=== PATIENT | female | born 1985 | race African-American/Black ===

== ENCOUNTER 2016-12-27 16:55 | Emergency (ER) | payer MEDICAID ==
[~2016-12-27] VITALS: Ht 167.6 cm; Wt 85.0 kg
[2016-12-27] MEDS ORDERED: ALBU2SYR PO (17:00)
[2016-12-27] MEDS ORDERED: ACETAMINOPHEN 325MG TABLET PO ONE (17:30)
[2016-12-27 20:22] VITALS: BP 130/85
== END 2016-12-27 20:25 | disposition home or self-care (01) ==
LOC: ER 16:55
DX: S80.02XA Contusion of left knee, initial encounter (principal); I10 Essential (primary) hypertension; J45.909 Unspecified asthma, uncomplicated; M32.9 Systemic lupus erythematosus, unspecified; W22.8XXA Striking against or struck by other objects, initial encounter; Y93.89 Activity, other specified; Y99.8 Other external cause status; Y92.481 Parking lot as the place of occurrence of the external cause
CPT/HCPCS: 73562; 81025; 99284

== ENCOUNTER 2017-07-09 04:03 | Emergency (ER) | payer MEDICAID, MEDICARE ==
[~2017-07-09] VITALS: Ht 175.3 cm; Wt 102.0 kg
[~2017-07-09 04:03] MED LIST: ALBU2SYR PO
[2017-07-09 04:15] VITALS: BP 175/121
== END 2017-07-09 05:09 | disposition home or self-care (01) ==
LOC: ER 04:03
DX: Z48.02 Encounter for removal of sutures (principal); I10 Essential (primary) hypertension; J45.909 Unspecified asthma, uncomplicated
CPT/HCPCS: 99281; Z7610

== ENCOUNTER 2018-03-02 09:21 | Emergency (ER) | payer MEDICAID, MEDICARE ==
[~2018-03-02] VITALS: Ht 175.3 cm; Wt 84.3 kg
[~2018-03-02 09:21] MED LIST changes: -ALBU2SYR PO; +ALBU2SYR3 PO
[2018-03-02] MEDS ORDERED: FAMOTIDINE 20MG/2ML VIAL IV ONE (10:00)
[2018-03-02] MEDS ORDERED: DIPHENHYDRAMINE 50MG/ML VIAL IV ONE (10:00)
[2018-03-02] MEDS ORDERED: METHYLPREDNISOLONE SOD SUCC 125 MG/2 ML VIAL IV ONE (10:00)
[2018-03-02 12:38] VITALS: BP 180/95
== END 2018-03-02 12:48 | disposition home or self-care (01) ==
LOC: ER 09:49
DX: T78.40XA Allergy, unspecified, initial encounter (principal); X58.XXXA Exposure to other specified factors, initial encounter; J45.909 Unspecified asthma, uncomplicated; I10 Essential (primary) hypertension; Z88.6 Allergy status to analgesic agent; Z91.018 Allergy to other foods
CPT/HCPCS: 96374; 96375; 99284; J1200; J2930; J3490

== ENCOUNTER 2023-05-12 00:13 | Emergency (ER) | payer MEDICAID ==
[~2023-05-12] VITALS: Ht 175.3 cm; Wt 103.0 kg
[2023-05-12 00:53] VITALS: BP 187/95; PULSE 82; RESP 14; TEMP 98; O2SAT 99
== END 2023-05-12 01:29 | disposition home or self-care (01) ==
LOC: ER 00:13
DX: S00.12XA Contusion of left eyelid and periocular area, initial encounter (principal); X58.XXXA Exposure to other specified factors, initial encounter; Y93.89 Activity, other specified; Y92.89 Other specified places as the place of occurrence of the external cause; Y99.8 Other external cause status
CPT/HCPCS: 99281